=== PATIENT | male | born 1980 | race Hispanic/Latino ===

== ENCOUNTER 2016-08-12 16:55 | Emergency (ER) | payer OTHER ==
[2016-08-12] MEDS ORDERED: ACETAMINOPHEN 325 MG TAB ONE (21:08)
[2016-08-12] MEDS ORDERED: TDaP 0.5 ML VIAL IM.VACC ONE (21:42)
[2016-08-12] MEDS ORDERED: LIDOCAINE 2% 20 ML ONE (23:14)
[2016-08-12] MEDS ORDERED: Ibuprofen 400 MG TAB ONE (23:50)
== END 2016-08-13 01:26 | disposition home or self-care (01) ==
LOC: ER 16:55 → EEVIPCON 16:55 → ER 08-13 01:26
CPT/HCPCS: 70450; 70486; 90471